=== PATIENT | female | born 1970 | race Caucasian/White ===

== ENCOUNTER → 2023-12-08 07:38 | Outpatient (REF) | payer BC, SELFPAY | LOC: HWRAD 07:38 | PROVIDERS: ATTENDING PHYSICIAN Nurse Practitioner Adult Health | DX: Z78.0 Asymptomatic menopausal state (principal) | CPT/HCPCS: 77080 ==

== ENCOUNTER → 2024-02-06 11:52 | Outpatient (REF) | payer BC, SELFPAY | LOC: RAD 11:52 | PROVIDERS: ATTENDING PHYSICIAN Internal Medicine Rheumatology; FAMILY PHYSICIAN Nurse Practitioner Adult Health | DX: E53.8 Deficiency of other specified B group vitamins (principal); E55.9 Vitamin D deficiency, unspecified; M19.90 Unspecified osteoarthritis, unspecified site | CPT/HCPCS: 73130; 73630 ==

== ENCOUNTER 2024-02-28 06:55 | Emergency (ER) | payer BC, SELFPAY ==
[2024-02-28] MEDS: BENADRYL 50 MG IV (09:46)
[2024-02-28] MEDS: PEPCID 20 MG IV (09:46)
[2024-02-28 09:55] VITALS: BMI 22.6
[2024-02-28 09:56] LABS: % Basophils 1.1 % (0-2); % Eosinophils 4.3 % (0-6); % Immature Granulocytes 0.2 % (0-0.5); % Lymphocytes 28.2 % (20.5-51.1); % Monocytes 8.6 % (1.7-9.3); % Neutrophils 57.6 % (42.2-75.2); Absolute Basophils 0.1 10^3/uL (0-0.2); Absolute Eosinophils 0.2 10^3/uL (0-0.7); Absolute Lymphocytes 1.3 10^3/uL (1.2-3.4); Absolute Monocytes 0.4 10^3/uL (0.1-0.6); Absolute Neutrophils 2.6 10^3/uL (1.4-6.5); Hematocrit 36.8 % (37.0-47.0); Hemoglobin 12.2 g/dL (12.0-16.0); Mean Corp Hgb Conc. 33.2 g/dL (33.0-37.0); Mean Corpuscular Hgb 27.4 pg (27.0-31.0); Mean Corpuscular Volume 82.5 fL (81.0-99.0); Nucleated Red Blood Cells % 0 %; Platelet Count 249 10^3/uL (130-400); Red Blood Cell Count 4.46 10^6/uL (4.20-5.40); Red Cell Dist. Width 13.2 % (11.5-14.5); White Blood Cell Count 4.4 10^3/uL (4.8-10.8)
[2024-02-28 10:00] LABS: INR 0.94; PT 12.4 Sec (11.4-14.6)
--- NOTE | 2024-02-28 10:06 | ED.GENMED ---
History of Present Illness
General
Chief Complaint: Skin Problem
Source: patient
Exam Limitations: none
Time Seen by Provider: 02/28/24 09:03
Nursing documentation reviewed up to this point in time: agreed with
History of Present Illness
History of Present Illness:
pt is a 53 y/o F with h/o undiagnosed autoimmune conditoin recently under care of Rheum
also h/o anxiety/depression
here with itchy rash that broke out on back this am and now is spreading to trunk atneriorly and arms
she has no symptoms on her legs, face
denies trouble breathing/swallowing/nausea/vomtiing
has had some other issues
chronic joint pain for about a year
had w/u which was not remarkable
sent to rheum and they presume she has something autoimmune so she was placed on prednisone taper starting02/06
20 mg down to 5 mg over 15 days
but she started having diarrhea last week, several episodes a day, loose stool, some itchiness to her anus
was treating with topicla cortisone which helped but she still has the itchiness
never had fever
now has some itchiness in her labia region
no vaginal discharge
denies being diabetic
also recently started hormone replacement therapy last week, estrodiol
has never been on that beofre
she has no sore throat, pain, trouble breathing, mouth lesions, hand/foot lesion
no recent abx
Past History
Past History
ED Past Medical History: Psychiatric
Social History
Tobacco: Non-smoker
Alcohol: None
Drug: None
Personal:
Living: with family
Review of Systems
Review of Systems
Allergies reviewed?: Yes
All Other Systems: Not applicable
Phy Exam
Physical Exam
Physical Exam:
GENERAL: Alert , in no apparent distress
EYE: pupils equal and reactive
NECK: Supple
ENT: o/p clr, mmm.
CARDIAC: Regular rate and rhythm .
LUNGS: Clear breath sounds bilaterally, no acute respiratory distress, no wheezes/rales/rhonchi
ABDOMEN: Soft, without focal tenderness, no r/g, no cvat, normal bowel sounds
NEUROLOGICAL: Alert and oriented, no focal neuro deficits
SKIN: Warm and dry, skin intact.
MUSCULOSKELETAL: No edema, well perfused. neg albino's sign
PSYCH: Normal and appropriate interaction.
Course
Orders/Labs/Results
Orders:
Orders
02/28/24 09:21
Diphenhydramine [Benadryl] 50 mg IV NOW STA
Famotidine [Pepcid] 20 mg IV NOW STA
02/28/24 09:26
MethylPREDNISolone PF [Solu-Medrol Pf] 125 mg IV NOW STA
02/28/24 09:33
Basic Metabolic Panel Urgent
COVID-19 Antigen Urgent
Source: Nasal Swab
Complete Blood Count/With Diff Urgent
Lyme Progressive Urgent
Prothrombin Time Urgent
02/28/24 10:27
CMP [Comprehensive Metabolic Panel] Urgent
Monotest Routine
Comment: PREVIOUS SPECIMEN HEMOLYZED UNABLE TO USE
02/28/24 11:41
Dexamethasone Sod Phosphate [Decadron] 10 mg IV NOW STA
02/28/24 12:02
Urinalysis Reflex To Culture Urgent
Date Specimen was Collected: 02/28/24
Time Specimen was Collected: 11:58
Urine Microscopic Reflex Cult Urgent
Rapid Strep Group A Urgent
REJI Source: Throat/Pharynx
Specimen Description:
Date Specimen was Collected: 02/28/24
Time Specimen was Collected: 11:57
Urine Culture Urgent
REJI Source: U
Specimen Description:
Date Specimen was Collected: 02/28/24
Time Specimen was Collected: 11:58
Abnormal Lab Results
02/28/24 02/28/24 02/28/24
09:33 10:27 12:02
WBC 4.4 L 10^3/uL
(4.8-10.8)
Hct 36.8 L %
(37.0-47.0)
Creatinine 0.5 L mg/dL
(0.6-1.0)
Total Protein 6.1 L g/dl
(6.3-8.2)
Ur Occult Blood Reflex Trace A
(Negative)
Leukocyte Esterase Rfl 1+ A
(Negative)
Urine Bacteria (Reflex) Moderate A
(Negative)
02/28/24 09:33
02/28/24 10:27
Vital Signs
Initial and Last Documented VS:
Initial Vital Signs
Temp Pulse Resp Pulse Ox
98.0 F 89 16 98
02/28/24 07:00 02/28/24 07:00 02/28/24 07:00 02/28/24 07:00
Last Documented Vital Signs
Temp Pulse Resp BP Pulse Ox
98.0 F 72 18 115/68 100
02/28/24 07:00 02/28/24 13:00 02/28/24 13:00 02/28/24 13:00 02/28/24 13:00
MDM/Problems Addressed
Differential Diagnosis Includes:
Allergic reaction, serum sickness or drug reaction, autoimmune disease, rebound rash dermatitis from stopping steroids
MDM/Problems Addressed:
53-year-old female with a history of a undifferentiated autoimmune disorder recently finished a taper of prednisone last week but also started a new estrogen medication for hormone replacement therapy for menopausal symptoms presents with an itchy
rash to her trunk that started this morning. She feels like it got worse since she woke up. It is her back and chest. She is not associated with any oral lesions, fever or chills. She has not been on any antibiotics. She is not having any
blistering or pain. It is very itchy. It does tyrone on exam and she does appear to have stable vital signs, there is no [place] spots, it itself appears like an erythematous raised coalescent/maculopapular rash that could be a drug allergy.
It really does not appear infectious. I did screening blood work which showed a mild leukopenia and no left shift. She has no albumin in her urine. There is no butterfly rash. I spoke with an on-call principal clerk for her rheumatology group who
was very helpful saying that she would get a message out to her principal clerk and she did agree that I should stop the estrogen for now since that the only new medication and she agreed with a Medrol Dosepak. Initially Benadryl and Pepcid did not
help her symptoms but after given Decadron her rash greatly reduced. So she will go home with Medrol Dosepak and Benadryl and instructions to see her principal clerk
*Critical Care Note
Total Time (30-74mins, 75-104mins- exclusive of procedures): Not Applicable
ED Attending Note
-
Portions of this chart may have been created with voice recognition software.� Occasional wrong word or��sound alike� substitutions may have occurred due to the inherent limitations of voice recognition software.
Discharge Plan
Departure
Patient Disposition: Home (Routine Discharge)
Date of Disposition: 02/28/24
Time of Disposition: 13:06
Patient with high blood pressure during this ER visit?: No
Discharge Problem:
Rash
Instructions: Skin Rash (DC)
Prescriptions:
New
methylprednisolone [Methylpred DP] 4 mg tablets,dose pack
See Rx Instructions .ROUTE .COMPLEX Qty: 21 0RF
Rx Instructions:
for 6 days
nystatin-triamcinolone 100,000-0.1 unit/gram-% ointment
1 applic topical BID 7 Days Qty: 15 0RF
Referrals:
Nava Prakash CRNP [Family Provider] - Follow up in 2-3 days
Activity Restrictions/Additional Instructions:
Were not sure what is causing your rash today. It could be an allergic reaction to the new medication that you started so you should stop this for now. We gave you a dose of steroids and Benadryl and Pepcid here in the emergency department. Take
Benadryl 50 mg tonight before bed and then 2-3 times a day for the next couple of days. You should also start a Medrol Dosepak in the morning tomorrow and take it as prescribed. You will have to follow the directions on the blister pack. I did
reach out to the principal clerk and she will get a message to your principal clerk but you will need to call on Friday to make an appointment. Tell them that you were in the ER and that I spoke with the on-call doctor.
Watch for any worsening symptoms like blistering, painful rash, mouth sores, fever or chills, sloughing of your skin, trouble breathing or any other concerning symptoms over the weekend and return immediately as needed.
apply the cream to your vaginal/rectal area twice a day fo r7 days
see your software applications specialist
Interventions
Interventions:
*Risk Screen - Suicide Last Done: 02/28/24 06:59
*General Assessment Last Done: 02/28/24 11:00
*Neglect/Abuse Screening Last Done: 02/28/24 07:00
ED- Fall Risk Assessment Last Done: 02/28/24 11:00
*ED COVID-19 Vaccine History Last Done: 02/28/24 09:56
*Nursing Disposition Last Done: 02/28/24 14:05
ED-Skin Assessment Last Done: 02/28/24 11:00
Discharge Date and Time
Discharge Date/Time: 02/28/24 14:07
Print Language: CROATIAN
[2024-02-28 10:11] LABS: Blood Urea Nitrogen 14 mg/dl (7-17); Calcium 9.7 mg/dl (8.4-10.2); Carbon Dioxide 24 mmol/L (22-30); Chloride 106 mmol/L (98-107); Estimated Creatinine Clearance 84 ml/min; Glucose 88 mg/dl (70-99); Sodium 141 mmol/L (135-145); eGFR > 60.00
[2024-02-28 10:38] LABS: COVID-19 Antigen Negative (Negative)
[2024-02-28 10:49] LABS: Monotest Negative (Negative)
[2024-02-28 10:53] LABS: ALT (SGPT) 16 U/L (0-35); AST (SGOT) 24 U/L (14-36); Albumin 4.1 g/dl (3.5-5.0); Alkaline Phosphatase 68 U/L (38-126); Blood Urea Nitrogen 14 mg/dl (7-17); Calcium 9.4 mg/dl (8.4-10.2); Carbon Dioxide 28 mmol/L (22-30); Chloride 105 mmol/L (98-107); Estimated Creatinine Clearance 84 ml/min; Glucose 87 mg/dl (70-99); Sodium 140 mmol/L (135-145); Total Bilirubin 0.4 mg/dl (0.2-1.3); Total Protein 6.1 g/dl (6.3-8.2); eGFR > 60.00
[2024-02-28 11:19] VITALS: BP 111/60
[2024-02-28] MEDS: DECADRON 10 MG IV (11:58)
[2024-02-28 12:25] LABS: Urine Albumin Negative (Neg - Trace); Urine Bilirubin Negative (Negative); Urine Character Clear (Clear); Urine Color Yellow; Urine Glucose Negative (Negative); Urine Ketone Negative (Negative); Urine Leukocyte 1+ (Negative); Urine Nitrite Negative (Negative); Urine Occult Blood Trace (Negative); Urine Specific Gravity 1.005 (<1.030); Urine Urobilinogen Negative (Neg - 1+)
[2024-02-28 13:00] VITALS: BP 115/68
[2024-02-28 13:01] LABS: Urine Bacteria Moderate (Negative); Urine Red Blood Cell 0-2 /HPF (0-2); Urine Squamous Cell 21-25 /LPF (Few)
[2024-03-01 15:35] LABS: Lyme Antibody Screen, EIA Negative (Negative)
== END 2024-02-28 14:07 | disposition home or self-care (01) ==
LOC: EMR 06:55
PROVIDERS: Physician Assistant; EMERGENCY PHYSICIAN Student in an Organized Health Care Education/Training Program; FAMILY PHYSICIAN Nurse Practitioner Adult Health
DX: R21 Rash and other nonspecific skin eruption (principal); F41.8 Other specified anxiety disorders
CPT/HCPCS: 99282; 96374; 96375; 80048; 80053; 81003; 81015; 85025; 85610; 86308; 86618; 87070; 87086; 87811; 87880

== ENCOUNTER → 2025-01-14 16:12 | Outpatient (REF) | payer BC, SELFPAY | LOC: WDC 16:12 | PROVIDERS: ATTENDING PHYSICIAN Obstetrics & Gynecology Gynecology; FAMILY PHYSICIAN Nurse Practitioner Adult Health | DX: Z12.31 Encounter for screening mammogram for malignant neoplasm of breast (principal) | CPT/HCPCS: 77063; 77067 ==